=== PATIENT | male | born 1995 | race Caucasian/White ===

== ENCOUNTER 2019-10-29 13:11 | Emergency (ER) | payer SELFPAY ==
[~2019-10-29] VITALS: Ht 175.3 cm; Wt 88.0 kg
[2019-10-29 13:20] VITALS: BP 151/96; Ht 175.3 cm; Wt 88.0 kg
== END 2019-10-29 14:59 | disposition home or self-care (01) ==
LOC: ED 13:11
DX: N34.2 Other urethritis (principal)
CPT/HCPCS: 87491; 87591; J0696